=== PATIENT | female | born 1975 | race Caucasian/White ===

== ENCOUNTER 2019-01-22 12:25 | Outpatient (CLI) | payer OTHER ==
--- NOTE | 2019-01-22 20:21 | ULT ---
PELVIC ULTRASOUND WITH ENDOVAGINAL IMAGIN01/22/19 Ultrasonography of the pelvis was performed for evaluation of menorrhagia. Scans were done both with abdominal and endovaginal probes. The uterus is retroverted and measures 9.3 x 6.1 x 6.3 cm. There are at least two hypoechoic masses c onsistent with uterine fibroids. One measures 3.2 cm in maximal width and the other 1.7 cm. The endom etrium is borderline in thickness at 1.1 cm. The right ovary is 3.6 cm long and the left ovary is 2.9 cm. Both are normal in appearance and have b lood flow. No free fluid was noted in the cul-de-sac. IMPRESSION: Findings suggestive of uterine fibroids and borderline endometrial thickening. No adnexal pathology s een. POS: HOME
== END 2019-01-22 12:26 | disposition home or self-care (01) ==
LOC: BURULT 12:25
PROVIDERS: ATTEND Family Medicine
DX: N92.1 Excessive and frequent menstruation with irregular cycle (principal)
CPT/HCPCS: 76856